=== PATIENT | male | born 1945 ===

== ENCOUNTER 2017-12-02 13:14 | Emergency (ER) | payer MEDICARE, OTHER ==
--- NOTE | 2017-12-02 13:36 | ER Report ---
History and Physical Time Seen By MD: 13:36 HPI/ROS CHIEF COMPLAINT: short of breath, mild chest tightness, elevated blood pressure HISTORY OF PRESENT ILLNESS: This is a 72 year old male. He has a history of hypertension and elevated cholesterol. He is visiting here at his cabin in [place] from [place]. He always has a little shortness of breath when he comes due to the altitude. He has a little chest tightness. He denies fevers, chills or cough. He has no palpitations. He is having elevation of his blood pressure. Take Carvedilol 6.25mg daily and Ramipril 10mg once a day as well. No nausea or vomiting. No headache or dizziness. Allergies: Coded Allergies: No Known Drug Allergies (Unverified , 12/02/17) Home Meds Active Scripts Carvedilol (CARVEDILOL) 6.25 Mg Tab, 6.25 MG PO BID, #60 TAB 0 Refills Prov:RAUL CUNNINGHAM MD 12/02/17 Reported Medications Aspirin (ASPIR 81) 81 Mg Tablet.dr, 81 MG PO QDAY, TAB 12/02/17 Amoxicillin (AMOXICILLIN) 500 Mg Capsule, 1 CAP PO Q8H, #15 CAPSULE 12/02/17 Carvedilol (CARVEDILOL) 6.25 Mg Tab, 6.25 MG PO DAILY, TAB 12/02/17 Ramipril (RAMIPRIL) 10 Mg Capsule, 10 MG PO QDAY, CAPSULE 12/02/17 Ezetimibe/Simvastatin (VYTORIN 10-20 MG TABLET) 1 Each Tablet, 1 EACH PO QDAY 12/02/17 Reviewed Nurses Notes: Yes Constitutional Vital Sign - Last 24 Hours 12/02/17 12/02/17 12/02/17 12/02/17 13:35 13:37 13:45 14:00 Pulse 60 61 Resp 18 B/P (MAP) 189/87 (121) 189/87 190/103 (132) 170/89 (116) Pulse Ox 96 12/02/17 12/02/17 12/02/17 12/02/17 14:15 14:30 15:00 15:15 Pulse 55 59 Resp 16 15 B/P (MAP) 160/80 (106) 162/86 (111) 168/80 (109) 157/81 (106) Pulse Ox 92 92 12/02/17 12/02/17 12/02/17 12/02/17 15:30 15:45 16:00 16:15 Pulse 59 59 59 59 Resp 18 21 17 19 B/P (MAP) 164/89 (114) 171/92 (118) 184/88 (120) 166/88 (114) Pulse Ox 95 95 94 93 12/02/17 12/02/17 12/02/17 12/02/17 16:30 17:15 17:45 18:00 Pulse 56 61 53 59 Resp 14 27 19 18 B/P (MAP) 193/96 (128) 190/95 (126) 187/93 (124) 179/97 (124) Pulse Ox 93 95 95 92 Physical Exam General Appearance: The patient is alert. No acute distress. Eyes: Pupils are equal, round. Extraocular movements are intact. ENT: Mucous membranes are moist. Normal oral mucosa. Posterior oropharynx is normal. Neck: Supple and non tender. Respiratory: Lungs are clear to auscultation. Cardiovascular: Regular rate and rhythm. No murmurs, gallops or rubs. Normal capillary refill. No edema. Gastrointestinal: Abdomen is soft and non tender. Nondistended. Normal active bowel sounds. Neurological: Alert and oriented x3. Cranial nerves II through XII show no acute deficits on my exam. No focal neurologic deficits in the extremities. Skin: Warm and dry. No rashes. Musculoskeletal: Extremities are nontender. No tenderness in palpation of the cervical, thoracic and lumbar spine. DIFFERENTIAL DIAGNOSIS: After history and physical exam, differential diagnosis was considered for shortness of breath including but not limited to altitude related causes, hypertensive causes, pulmonary infectious process, COPD, pulmonary embolus and congestive heart failure. Medical Decision Making Data Points Result Diagram: 12/02/17 1345 12/02/17 1345 Laboratory Hematology Test 12/02/17 13:45 Red Blood Count 5.07 M/uL (4.00-5.60) Mean Corpuscular Volume 94.6 fL (80.0-96.0) Mean Corpuscular Hemoglobin 33.4 pg (26.0-33.0) Mean Corpuscular Hemoglobin Concent 35.3 g/dL (32.0-36.0) Red Cell Distribution Width 13.7 % (11.5-14.5) Mean Platelet Volume 8.3 fL (7.2-11.1) Neutrophils (%) (Auto) 52.4 % (39.4-72.5) Lymphocytes (%) (Auto) 35.5 % (17.6-49.6) Monocytes (%) (Auto) 8.0 % (4.1-12.4) Eosinophils (%) (Auto) 3.7 % (0.4-6.7) Basophils (%) (Auto) 0.4 % (0.3-1.4) Nucleated RBC Relative Count (auto) 0.1 /100WBC Neutrophils # (Auto) 3.9 K/uL (2.0-7.4) Lymphocytes # (Auto) 2.6 K/uL (1.3-3.6) Monocytes # (Auto) 0.6 K/uL (0.3-1.0) Eosinophils # (Auto) 0.3 K/uL (0.0-0.5) Basophils # (Auto) 0.0 K/uL (0.0-0.1) Nucleated RBC Absolute Count (auto) 0.00 K/uL D-Dimer Quantitative (PE/DVT) 0.57 ug/ml (0-0.50) Sodium Level 135 mmol/L (137-145) Potassium Level 4.0 mmol/L (3.5-5.0) Chloride Level 99 mmol/L (98-107) Carbon Dioxide Level 25 mmol/L (22-30) Blood Urea Nitrogen 11 mg/dl (9-21) Creatinine 0.90 mg/dl (0.66-1.25) Glomerular Filtration Rate Calc > 60.0 Random Glucose 149 mg/dl (75-110) Calcium Level 9.2 mg/dl (8.4-10.2) Total Bilirubin 0.5 mg/dl (0.2-1.3) Aspartate Amino Transf (AST/SGOT) 57 U/L (0-35) Alanine Aminotransferase (ALT/SGPT) 67 U/L (0-56) Alkaline Phosphatase 94 U/L (0-126) Troponin I < 0.012 ng/ml Total Protein 6.6 g/dl (6.3-8.2) Albumin 4.1 g/dl (3.5-5.0) Chemistry Test 12/02/17 13:45 White Blood Count 7.4 k/uL (4.5-11.0) Red Blood Count 5.07 M/uL (4.00-5.60) Hemoglobin 16.9 g/dL (14.0-18.0) Hematocrit 47.9 % (42.0-52.0) Mean Corpuscular Volume 94.6 fL (80.0-96.0) Mean Corpuscular Hemoglobin 33.4 pg (26.0-33.0) Mean Corpuscular Hemoglobin Concent 35.3 g/dL (32.0-36.0) Red Cell Distribution Width 13.7 % (11.5-14.5) Platelet Count 132 K/uL (150-450) Mean Platelet Volume 8.3 fL (7.2-11.1) Neutrophils (%) (Auto) 52.4 % (39.4-72.5) Lymphocytes (%) (Auto) 35.5 % (17.6-49.6) Monocytes (%) (Auto) 8.0 % (4.1-12.4) Eosinophils (%) (Auto) 3.7 % (0.4-6.7) Basophils (%) (Auto) 0.4 % (0.3-1.4) Nucleated RBC Relative Count (auto) 0.1 /100WBC Neutrophils # (Auto) 3.9 K/uL (2.0-7.4) Lymphocytes # (Auto) 2.6 K/uL (1.3-3.6) Monocytes # (Auto) 0.6 K/uL (0.3-1.0) Eosinophils # (Auto) 0.3 K/uL (0.0-0.5) Basophils # (Auto) 0.0 K/uL (0.0-0.1) Nucleated RBC Absolute Count (auto) 0.00 K/uL D-Dimer Quantitative (PE/DVT) 0.57 ug/ml (0-0.50) Glomerular Filtration Rate Calc > 60.0 Calcium Level 9.2 mg/dl (8.4-10.2) Total Bilirubin 0.5 mg/dl (0.2-1.3) Aspartate Amino Transf (AST/SGOT) 57 U/L (0-35) Alanine Aminotransferase (ALT/SGPT) 67 U/L (0-56) Alkaline Phosphatase 94 U/L (0-126) Troponin I < 0.012 ng/ml Total Protein 6.6 g/dl (6.3-8.2) Albumin 4.1 g/dl (3.5-5.0) Coagulation Test 12/02/17 13:45 D-Dimer Quantitative (PE/DVT) 0.57 ug/ml EKG/Imaging EKG Interpretation 12 lead EKG: Rhythm: Sinus rhythm with first-degree AV block, rate 60 to [place]: Left axis deviation QRS: Nonspecific other than low-voltage ST segments: Lead V3 shows some elevation but no other leads show elevation or depression. There is nonspecific diffuse T-wave flattening Imaging 2 VIEWS CHEST INDICATION: Short of breath and chest tightness. COMPARISON: None available FINDINGS: The lungs appear clear and mildly hyperinflated. Diaphragms appear mildly flattened suggesting underlying obstructive airways disease. No effusion or pneumothorax is seen. Heart size and mediastinal contours are normal. There has been previous median sternotomy and coronary artery bypass grafting. Thoracic aorta is atherosclerotic. Changes of diffuse idiopathic skeletal hyperostosis involves the midthoracic spine. IMPRESSION: 1. No radiographic evidence of active disease. 2. Findings suggesting underlying obstructive airways disease. Report Dictated By: Royce Dow at 12/02/2017 3:15 PM ED Course/Re-evaluation Clinical Indication for ER IV: IV Access ED Course Chest tightness is gone. Still mild shortness of breath, but what he usually experiences when he comes to [place]. His chest x-ray and labs were negative except for D-dimer. Negative CTA of the chest. Reviewed this with the patient. Labetalol 20mg IV was given and blood pressure down to an elevated but safe range. Would like him to increase is Carvedilol to 6.25mg twice a day. Decision to Disposition Date: Dec 02, 2017 Decision to Disposition Time: 18:02 Depart Departure Latest Vital Signs Vital Signs Date Time Temp Pulse Resp B/P (MAP) Pulse Ox O2 Delivery O2 Flow Rate FiO2 12/02/17 18:00 59 18 179/97 (960) 92 Impression: Primary Impression: Hypertension Additional Impressions: Shortness of breath Mountain sickness Condition: Improved Disposition: HOME OR SELF-CARE New Scripts Carvedilol (CARVEDILOL) 6.25 Mg Tab 6.25 MG PO BID, #60 TAB 0 Refills Prov: RAUL CUNNINGHAM MD 12/02/17 Patient Instructions: Hypertension (ED), Mountain Sickness (ED) Additional Instructions: Your blood pressure was a little high today. We would like to have you increase your Carvedilol (Coreg) to 6.25mg twice a day. No change to your other medications at this time. The rest of the workup was negative tonight. If you have further problems, please return to the ER for further evaluation. Problem Qualifiers Primary Impression: Hypertension Hypertension type: essential hypertension Qualified Codes: I10 - Essential ( primary) hypertension Additional Impressions: Mountain sickness Encounter type: initial encounter Qualified Codes: T70.29XA - Other effects of high altitude, initial encounter RAUL CUNNINGHAM MD Dec 02, 2017 13:36
[2017-12-02] MEDS ORDERED: RAMI10CA52 PO (13:45)
[2017-12-02] MEDS ORDERED: AMOX-362 PO (13:45)
[2017-12-02] MEDS ORDERED: ASPI-1471 PO (13:45)
[2017-12-02] MEDS ORDERED: CAR6.25 PO ×2 (13:45→18:04)
[2017-12-02] MEDS ORDERED: EZET1TAB81 PO (13:45)
--- NOTE | 2017-12-02 14:15 | EKG ---
FACILITY: [facility] PATIENT NAME: CORDELL BRONSON : [id number] MR: [id number] V: [id number] EXAM DATE: ORDERING PHYSICIAN: RAUL CUNNINGHAM TECHNOLOGIST: DANYA Test Reason : SOB Blood Pressure : / mmHG Vent. Rate : 062 BPM Atrial Rate : 062 BPM P-R Int : 210 ms QRS Dur : 112 ms QT Int : 434 ms P-R-T Axes : -27 -86 019 degrees QTc Int : 440 ms Sinus rhythm with 1st degree AV block Left axis deviation Pulmonary disease pattern Septal infarct , age undetermined Abnormal ECG No previous ECGs available Referred By: OCTAVIO Confirmed By:
[2017-12-02 14:16] LABS: PLATELET COUNT, AUTOMATED 132 K/uL (150-450)
--- NOTE | 2017-12-02 15:19 | RADIOLOGY IMAGING REPORT ---
FACILITY: [facility] [place] PATIENT NAME: Ag Moulton : 1945 MR: [id number] V: [id number] EXAM DATE: ORDERING PHYSICIAN: RAUL CUNNINGHAM TECHNOLOGIST: Location: [facility] Patient: Ag Moulton : 1945 Visit/Account:[id number] Date of Sevice: 12/02/2017 2 VIEWS CHEST INDICATION: Short of breath and chest tightness. COMPARISON: None available FINDINGS: The lungs appear clear and mildly hyperinflated. Diaphragms appear mildly flattened suggesting under lying obstructive airways disease. No effusion or pneumothorax is seen. Heart size and mediastinal co ntours are normal. There has been previous median sternotomy and coronary artery bypass grafting. T horacic aorta is atherosclerotic. Changes of diffuse idiopathic skeletal hyperostosis involves the m idthoracic spine. IMPRESSION: 1. No radiographic evidence of active disease. 2. Findings suggesting underlying obstructive airways disease. Report Dictated By: Royce Dow at 12/02/2017 3:15 PM Report E-Signed By: Royce Dow at 12/02/2017 3:16 PM WSN:[id number]
[2017-12-02] MEDS ORDERED: LABETALOL HCL 100 MG/20ML VIAL IVP ONE (16:35)
[2017-12-02] MEDS ORDERED: IOPAMIDOL 76% 75 ML INFUS BTL 75 ML ONE (16:50)
[2017-12-02] MEDS ORDERED: NS 0.9% 25 ML BAG 50 ML ONE (16:50)
--- NOTE | 2017-12-02 17:47 | RADIOLOGY IMAGING REPORT ---
FACILITY[place] [facility] [place]IENT NAME: Ag Moulton : 1945 MR: [id number] V: [id number] EXAM DATE: ORDERING PHYSICIAN: RAUL CUNNINGHAM TECHNOLOGIST: Location: [facility] Patient: Ag Moulton : 1945 Visit/Account:[id number] Date of Sevice: 12/02/2017 EXAMINATION: CTA of the chest with IV contrast HISTORY: Shortness of breath. Elevated blood pressure. Chest tightness. TECHNIQUE: Pulmonary embolus protocol - Thin axial CT images of the chest were obtained with IV con trast during maximal pulmonary arterial opacification. Reconstruction of the source data includes mul tiplanar 2D coronal and sagittal reconstructed images, and 3D coronal and sagittal MIP images. Repres entative images have been stored on PACS. One of the following dose optimization techniques was utilized in the performance of this exam: Autom ated exposure control; adjustment of the mA and/or kV according to the patient's size; or use of an i terative reconstruction technique. Specific details can be referenced in the facility's radiology C T exam operational policy. Contrast: 75 mL of IV [id number]. COMPARISON: None. FINDINGS: Pulmonary arteries: The pulmonary arteries are well opacified, without suspicious filling defect. Heart, aorta, and great vessels: Sternotomy with surgical changes of CABG. The thoracic aorta is poo rly opacified but normal in caliber. Moderate aortic atherosclerosis. Normal heart size. No pericardi al effusion. Lungs and pleura: The lungs are clear. No focal consolidation. No pleural effusion or pneumothorax. The central airways are patent. Mediastinum and jeff: Negative. Visualized upper abdomen: There is diffuse fine nodularity along the liver surface, suspicious for c irrhosis. Chest wall: Negative. Bones: No acute osseous findings. Multilevel degenerative changes throughout the spine. IMPRESSION: 1. No evidence of pulmonary embolism. 2. No other acute findings in the chest. The lungs are clear. 3. Surgical changes of CABG. 4. Diffuse nodularity along the liver surface, suspicious for cirrhosis. Report Dictated By: Cristi Carbajal MD at 12/02/2017 5:38 PM Report E-Signed By: Cristi Carbajal MD at 12/02/2017 5:44 PM WSN:[id number]
[2017-12-02 18:00] VITALS: BP 179/97
== END 2017-12-02 18:28 | disposition home or self-care (01) ==
LOC: ER 13:57
DX: T70.29XA Other effects of high altitude, initial encounter (principal); I10 Essential (primary) hypertension; R06.02 Shortness of breath
CPT/HCPCS: 71046; 71275; 84484; 85025; 85379; 93005; 96374; 99284; J3490; Q9967; 82040; 82247; 82310; 82374; 82435; 82565; 82947; 84075; 84132; 84155; 84295; 84450; 84460; 84520